=== PATIENT | female | born 1950 | race Caucasian/White ===

== ENCOUNTER 2023-07-24 13:02 | Emergency (ER) | payer MEDICARE, OTHER, SELFPAY ==
[2023-07-24 13:07] VITALS: BP 154/91
[2023-07-24] MEDS: ZOFRAN ODT (ORALLY DISINTEGRATING) 4 MG PO (13:20)
[2023-07-24 13:30] LABS: % Basophils 0.4 % (0-2); % Eosinophils 0.7 % (0-6); % Immature Granulocytes 0.3 % (0-0.5); % Lymphocytes 12.1 % (20.5-51.1); % Monocytes 8.4 % (1.7-9.3); % Neutrophils 78.1 % (42.2-75.2); Absolute Eosinophils 0.1 10^3/uL (0-0.7); Absolute Lymphocytes 1.3 10^3/uL (1.2-3.4); Absolute Monocytes 0.9 10^3/uL (0.1-0.6); Absolute Neutrophils 8.2 10^3/uL (1.4-6.5); Hemoglobin 14.3 g/dL (12.0-16.0); Mean Corp Hgb Conc. 34.9 g/dL (33.0-37.0); Mean Corpuscular Hgb 31.6 pg (27.0-31.0); Mean Corpuscular Volume 90.5 fL (81.0-99.0); Nucleated Red Blood Cells % 0 %; Platelet Count 291 10^3/uL (130-400); Red Blood Cell Count 4.53 10^6/uL (4.20-5.40); Red Cell Dist. Width 12.9 % (11.5-14.5); White Blood Cell Count 10.5 10^3/uL (4.8-10.8)
[2023-07-24 13:34] LABS: Urine Albumin Trace (Neg - Trace); Urine Bilirubin Negative (Negative); Urine Character Slightly Cloudy (Clear); Urine Color Yellow; Urine Glucose Negative (Negative); Urine Ketone Negative (Negative); Urine Leukocyte 2+ (Negative); Urine Nitrite Positive (Negative); Urine Occult Blood 1+ (Negative); Urine Specific Gravity 1.015 (<1.030); Urine Urobilinogen Negative (Neg - 1+)
[2023-07-24 13:41] LABS: Urine Red Blood Cell 0-2 /HPF (0-2)
[2023-07-24 13:42] LABS: Urine Bacteria Many (Negative)
[2023-07-24 13:53] LABS: ALT (SGPT) 33 U/L (0-35); AST (SGOT) 26 U/L (14-36); Albumin 4.6 g/dl (3.5-5.0); Alkaline Phosphatase 116 U/L (38-126); Blood Urea Nitrogen 17 mg/dl (7-17); Calcium 9.8 mg/dl (8.4-10.2); Carbon Dioxide 24 mmol/L (22-30); Chloride 101 mmol/L (98-107); Glucose 130 mg/dl (70-99); Lipase 79 U/L (23-300); Potassium 4.6 mmol/L (3.5-5.1); Sodium 134 mmol/L (135-145); Total Bilirubin 1.1 mg/dl (0.2-1.3); Total Protein 7.6 g/dl (6.3-8.2); eGFR > 60.00
[2023-07-24] MEDS: TYLENOL 650 MG PO (15:29)
[2023-07-24] MEDS: NSS 1000 IV (15:29)
[2023-07-24 16:26] LABS: Lactic Acid 1.1 mmol/L (0.7-2.0)
--- NOTE | 2023-07-24 17:23 | ED.GENMED ---
Addendum entered and electronically signed by Marianne Francis PA-C 07/28/23 07:12:
urine culture e coli sensitive to cefazolin, on cefdinir, no treatment change
Original Note:
History of Present Illness
General
Chief Complaint: Abdominal Symptoms
Source: patient
Exam Limitations: none
Time Seen by Provider: 07/24/23 14:19
Nursing documentation reviewed up to this point in time: agreed with
Travel History
Have you had any contact with someone who has COVID-19?: No
Do you have any symptoms of coronavirus? Fever > 100 degrees, chills, cough, shortness of breath, sore throat, loss of taste or smell, muscle aches, or headache?: No
History of Present Illness
History of Present Illness:
73-year-old female with history of hypertension hyperlipidemia presents for nausea and vomiting today. Patient says the symptoms actually started with diarrhea yesterday early in 2 AM timeframe. She says she had eaten out at a restaurant and
thought maybe she just ate some bad food. She had several episodes of diarrhea before taking an Imodium and then the diarrhea resolved. Then she did not really have an appetite yesterday and then today started having nausea and vomiting. She
thinks she vomited at least 20 times at home. Patient was feeling very cold and having the shaking chills and bodyaches. She never had any focal abdominal discomfort never had any urinary symptoms. 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
prolapse status post surgeries. She was followed by a urologist as well. She does not chronically get UTIs. Of note the patient did take Advil 400 mg at 1145 today and Tylenol 500 mg for feeling feverish.
she has never had a kidney stone
denies back pain, abdominal pain
had strep A positive 3 weeks ago and was treated with amox but has completed the abx > 10 days ago
Past History
Past History
ED Past Medical History: HTN and Hypercholesterolemia
ED Past Surgical History: Urological
Social History
Tobacco: Non-smoker
Alcohol: None
Drug: None
Personal:
Living: with family
Review of Systems
Review of Systems
Allergies reviewed?: Yes
All Other Systems: Not applicable
Phy Exam
Physical Exam
Physical Exam:
GENERAL: Alert , in no apparent distress
EYE: pupils equal and reactive
NECK: Supple
ENT: o/p clr, dry mouth.
CARDIAC: Regular rate and rhythm, no edema
LUNGS: Clear breath sounds bilaterally, no acute respiratory distress, no wheezes/rales/rhonchi
ABDOMEN: Soft, without focal tenderness, no r/g, no cvat, normal bowel sounds
no suprapubic pain
no cva tenderness;
NEUROLOGICAL: Alert and oriented, no focal neuro deficits
SKIN: Warm and dry, skin intact.
MUSCULOSKELETAL: No edema, well perfused. neg scott's sign
PSYCH: Normal and appropriate interaction.
Course
Orders/Labs/Results
Orders:
Orders
07/24/23 13:19
Ondansetron Orally Disint [Zofran Odt (Orally Disintegrating)] 4 mg .ROUTE .STK-MED ONE
Ondansetron Orally Disint [Zofran Odt (Orally Disintegrating)] 4 mg PO NOW STA
07/24/23 13:22
Complete Blood Count/With Diff Urgent
Comprehensive Metabolic Panel Urgent
Lipase Urgent
Urinalysis Reflex To Culture Urgent
Date Specimen was Collected: 07/24/23
Time Specimen was Collected: 13:15
Urine Microscopic Reflex Cult Urgent
Urine Culture Urgent
FAROOQ Source: U
Specimen Description:
Date Specimen was Collected: 07/24/23
Time Specimen was Collected: 13:15
07/24/23 15:19
0.9% Sodium Chloride 1000 ml [Nss] 1,000 ml IV BOLUS
07/24/23 15:20
CT Abd/Pel (IV only)-DH only Urgent
Comment:
Reason For Exam: n/v/d, fever, UTI
Acetaminophen [Tylenol] 650 mg PO NOW STA
07/24/23 15:48
Lactic Acid Urgent
Blood Culture Q30M
FAROOQ Source: Blood/Venous
Specimen Description:
07/24/23 15:49
Blood Culture Q30M
FAROOQ Source: Blood/Venous
Specimen Description:
07/24/23 17:22
CefTRIAXone [Rocephin] 1,000 mg IV NOW STA
Abnormal Lab Results
07/24/23
13:22
MCH 31.6 H pg
(27.0-31.0)
Absolute Neuts (auto) 8.2 H 10^3/uL
(1.4-6.5)
Absolute Monos (auto) 0.9 H 10^3/uL
(0.1-0.6)
Neutrophils % 78.1 H %
(42.2-75.2)
Lymphocytes % 12.1 L %
(20.5-51.1)
Sodium 134 L mmol/L
(135-145)
Glucose 130 H mg/dl
(70-99)
Ur Occult Blood Reflex 1+ A
(Negative)
Urine Nitrite (Reflex) Positive A
(Negative)
Leukocyte Esterase Rfl 2+ A
(Negative)
Urine WBC (Reflex) 11-15 A /HPF
(0-5)
Urine Bacteria (Reflex) Many A
(Negative)
07/24/23 13:22
07/24/23 13:22
Vital Signs
Initial and Last Documented VS:
Initial Vital Signs
Temp Pulse Resp BP Pulse Ox
100.9 F H 118 20 154/91 99
07/24/23 13:07 07/24/23 13:07 07/24/23 13:07 07/24/23 13:07 07/24/23 13:07
Last Documented Vital Signs
Temp Pulse Resp BP Pulse Ox
99.9 F 92 18 121/59 97
07/24/23 17:33 07/24/23 17:33 07/24/23 17:33 07/24/23 17:33 07/24/23 17:33
MDM/Problems Addressed
Differential Diagnosis Includes:
uti, pyelo, infectious diarrhea, colitis, gastroenteritis
MDM/Problems Addressed:
73 y/o F with htn, hld
here with n/v/d
started yesterday with diarrhea, which was a few episodes, pianless, and resovled after 1 imodium but then pt got n/v x 20 today and aches, chills, and fever
she has not had urinary symptoms
was recently on abx a few weeks ago for strep (amox)
she has not had any back pain, abdominal pain, bloody diarrhea
on exam pt appeared dry mouth, tachy, febrile
she has nontende rabdomen
no cva tendneress
temp was 101
treated with tylenola nd fluids
labs show normal wbc, normal lactate
ct shows no obvious pathology
reassessed 07/24/2023 1734 PM
feels better
tolerated oral fluids
no longer febrile
well appearing, nontoxic
urine +
will treat with rocephin
pt toelrated po fluids here
d/c home
return precautions.
*Critical Care Note
Total Time (30-74mins, 75-104mins- exclusive of procedures): Not Applicable
ED Attending Note
-
Portions of this chart may have been created with voice recognition software.� Occasional wrong word or��sound alike� substitutions may have occurred due to the inherent limitations of voice recognition software.
Discharge Plan
Departure
Patient Disposition: Home (Routine Discharge)
Date of Disposition: 07/24/23
Time of Disposition: 17:37
Patient with high blood pressure during this ER visit?: No
Condition: Fair
Covid-19: Not Applicable
Discharge Problem:
UTI (urinary tract infection), Nausea vomiting and diarrhea
Instructions: Urinary Tract Infection, Adult (DC), Nausea and Vomiting, Adult (DC)
Prescriptions:
New
ondansetron 4 mg tablet,disintegrating
4 mg PO Q8H PRN (Reason: nausea and vomiting) 2 Days Qty: 5 0RF
cefdinir 300 mg capsule
300 mg PO BID Qty: 20 0RF
Referrals:
Jcarlos Wood PA-C [Family Provider] - Follow up in 2-3 days
Activity Restrictions/Additional Instructions:
Were not sure what is causing your nausea vomiting and diarrhea but it could be viral. You do however have a urinary tract infection. We are giving you antibiotics, you can start taking your cefdinir tomorrow twice a day for 10 days. We sent a
culture just in case we need to change her antibiotic. You can use a probiotic while you are on this antibiotic to avoid diarrhea. If you start getting more diarrhea you may have to have an evaluation with a stool study. Return for high fevers,
back pain, repeated vomiting, severe diarrhea, or any concerns.
If you get nauseous you can use Zofran 4 mg every 8 hours as needed
Interventions
Interventions:
*Risk Screen - Suicide Last Done: 07/24/23 17:56
*General Assessment Last Done: 07/24/23 17:56
*Neglect/Abuse Screening Last Done: 07/24/23 17:56
ED- Fall Risk Assessment Last Done: 07/24/23 17:56
*ED COVID-19 Vaccine History Last Done: 07/24/23 17:56
TW-Sftctd-Oyklltmhek Assessment Last Done: 07/24/23 17:56
Discharge Date and Time
Print Language: FAROESE
[2023-07-24 17:33] VITALS: BP 121/59
[2023-07-24] MEDS: ROCEPHIN 1000 MG IV (17:36)
== END 2023-07-24 18:00 | disposition home or self-care (01) ==
LOC: EMR 13:02
PROVIDERS: Emergency Medicine; Physician Assistant; EMERGENCY PHYSICIAN Emergency Medicine; FAMILY PHYSICIAN Physician Assistant Medical
DX: N39.0 Urinary tract infection, site not specified (principal); R11.2 Nausea with vomiting, unspecified; R19.7 Diarrhea, unspecified; R00.0 Tachycardia, unspecified; R68.2 Dry mouth, unspecified; I10 Essential (primary) hypertension; E78.00 Pure hypercholesterolemia, unspecified
CPT/HCPCS: 99285; 96361; 96374; 74177; 80053; 81003; 81015; 83605; 83690; 85025; 87040; 87086; 87088; 87186; Q9967

== ENCOUNTER 2023-11-25 16:34 | Emergency (ER) | payer MEDICARE, OTHER, SELFPAY ==
[2023-11-25 16:37] VITALS: BP 134/86
[2023-11-25] MEDS: TYLENOL 1000 MG PO (16:45)
[2023-11-25] MEDS: ZOFRAN ODT (ORALLY DISINTEGRATING) 4 MG PO (16:45)
[2023-11-25 16:55] LABS: % Basophils 0.2 % (0-2); % Eosinophils 0.1 % (0-6); % Immature Granulocytes 0.5 % (0-0.5); % Lymphocytes 5.3 % (20.5-51.1); % Monocytes 8.2 % (1.7-9.3); % Neutrophils 85.7 % (42.2-75.2); Absolute Immature Granulocytes 0.1 10^3/uL (0-0.05); Absolute Lymphocytes 0.7 10^3/uL (1.2-3.4); Absolute Monocytes 1.1 10^3/uL (0.1-0.6); Absolute Neutrophils 11.2 10^3/uL (1.4-6.5); Hematocrit 40.5 % (37.0-47.0); Hemoglobin 14.4 g/dL (12.0-16.0); Mean Corp Hgb Conc. 35.6 g/dL (33.0-37.0); Mean Corpuscular Hgb 30.7 pg (27.0-31.0); Mean Corpuscular Volume 86.4 fL (81.0-99.0); Mean Platelet Volume 9.4 fL (7.4-10.4); Nucleated Red Blood Cells % 0 %; Platelet Count 229 10^3/uL (130-400); Red Blood Cell Count 4.69 10^6/uL (4.20-5.40); Red Cell Dist. Width 13.2 % (11.5-14.5); White Blood Cell Count 13.1 10^3/uL (4.8-10.8)
[2023-11-25 16:59] LABS: Urine Albumin Negative (Neg - Trace); Urine Bilirubin Negative (Negative); Urine Character Clear (Clear); Urine Color Yellow; Urine Glucose Negative (Negative); Urine Ketone Negative (Negative); Urine Leukocyte 2+ (Negative); Urine Nitrite Positive (Negative); Urine Occult Blood 1+ (Negative); Urine Specific Gravity 1.005 (<1.030); Urine Urobilinogen Negative (Neg - 1+)
[2023-11-25 17:08] LABS: Lactic Acid 1.3 mmol/L (0.7-2.0)
[2023-11-25 17:09] LABS: ALT (SGPT) 32 U/L (0-35); AST (SGOT) 31 U/L (14-36); Albumin 4.4 g/dl (3.5-5.0); Alkaline Phosphatase 114 U/L (38-126); Blood Urea Nitrogen 14 mg/dl (7-17); Calcium 9.7 mg/dl (8.4-10.2); Carbon Dioxide 24 mmol/L (22-30); Chloride 100 mmol/L (98-107); Glucose 116 mg/dl (70-99); Lipase 41 U/L (23-300); Potassium 4.8 mmol/L (3.5-5.1); Sodium 136 mmol/L (135-145); Total Bilirubin 1.1 mg/dl (0.2-1.3); Total Protein 6.9 g/dl (6.3-8.2); eGFR > 60.00
[2023-11-25 17:10] LABS: Urine Bacteria Many (Negative); Urine Squamous Cell 26-30 /LPF (Few); Urine White Cell 26-30 /HPF (0-5)
[2023-11-25 18:32] VITALS: BP 107/58
[2023-11-25 19:01] VITALS: BP 116/70
--- NOTE | 2023-11-25 19:05 | ED.GENMED ---
History of Present Illness
<ANAM Rucker - Last Filed: 11/25/23 19:28>
General
Chief Complaint: Urinary Symptoms
Source: patient
Exam Limitations: none
Time Seen by Provider: 11/25/23 18:24
History of Present Illness
History of Present Illness:
This is a 73 year old female that comes in with c/o urinary symptoms. States that she was here 4 months ago with the same thing. States that she got up yesterday and just didn't feel good. States that she started with a low grade fever of 100 and
she took Ibuprofen. States that she started with urinary burning and frequency. States that she slept but not well. States that she awoke and again did not feel well. States that in the afternoon she had a fever of 102 and shaking chills. States
that she also vomited. Denies any chest pain, SOB< abd pain, diarrhea, headache, dizziness.
Past History
<ANAM Rucker - Last Filed: 11/25/23 19:28>
Past History
ED Past Medical History: HTN, Hypercholesterolemia and Other (Rectol prolapse, UTI, )
ED Past Surgical History: Bowel resection, Gynecological (Hysterectomy), Orthopedic (Left hand surgery) and Urological (Bladder sling X 2)
Social History
Tobacco: Former smoker
Alcohol: None
Drug: None
Personal:
Living: with family
Review of Systems
<ANAM Rucker - Last Filed: 11/25/23 19:28>
Review of Systems
All Other Systems: ROS reviewed and negative except as documented in HPI and ROS
Constitutional: Reports fever and chills
EENT: Reports no symptoms
Respiratory: Reports no symptoms; Denies cough or trouble breathing
Cardiac: Reports no symptoms; Denies chest pain
ABD/GI: Reports nausea and vomiting; Denies abdominal pain or diarrhea
: Reports dysuria, frequency and urgency
Musculoskeletal: Reports no symptoms
Skin: Reports no symptoms
Neurological: Reports no symptoms; Denies dizzy or headache
Psychiatric: Reports no symptoms
Phy Exam
<ANAM Rucker - Last Filed: 11/25/23 19:28>
General Physical Exam
General Presentation: well appearing and no apparent distress
General age: appears stated age
General Skin: warm and dry
General Habitus: elderly
General Mental: alert
General Hydration: dry mucous membranes
ENT Exam
ENT Exam: TM's normal, pharynx normal and neck supple
Eye Exam
Eye Exam: EOMI
Cardiovascular Exam
Cardiovascular Exam: regular rate/rhythm, no edema, no murmur and normal peripheral pulses
Pulmonary Exam
Pulmonary Exam: lungs clear, no respiratory distress, no rales, chest non tender, no crackles, no rhonchi, no wheezing and no cough
Gastrointestinal Exam
Gastrointestinal Exam: normal bowel sounds, non tender, soft, no organomegaly, no pulsatile mass and non distended
Musculoskeletal Exam
Musculoskeletal Exam: full ROM and no edema
Skin Exam
Skin Exam: normal color, warm/dry, no rash and no petechia
Psychiatric Exam
Psychiatric Exam: normal mood/affect
Course
<ANAM Rucker - Last Filed: 11/25/23 19:28>
Orders/Labs/Results
Orders:
Orders
11/25/23 16:43
Acetaminophen [Tylenol] 1,000 mg .ROUTE .STK-MED ONE
Ondansetron Orally Disint [Zofran Odt (Orally Disintegrating)] 4 mg .ROUTE .STK-MED ONE
11/25/23 16:44
Acetaminophen [Tylenol] 1,000 mg PO NOW STA
Ondansetron Orally Disint [Zofran Odt (Orally Disintegrating)] 4 mg PO NOW STA
11/25/23 16:45
CBC/With Diff [Complete Blood Count/With Diff] Urgent
CMP [Comprehensive Metabolic Panel] Urgent
Lactate Level [Lactic Acid] Urgent
Lipase Urgent
11/25/23 16:48
Urinalysis Reflex To Culture Urgent
Date Specimen was Collected: 11/25/23
Time Specimen was Collected: 16:40
Urine Microscopic Reflex Cult Urgent
Urine Culture Urgent
FAROOQ Source: U
Specimen Description:
Date Specimen was Collected: 11/25/23
Time Specimen was Collected: 16:40
11/25/23 19:04
CefTRIAXone [Rocephin] 1,000 mg IV NOW STA
Abnormal Lab Results
11/25/23 11/25/23
16:45 16:48
WBC 13.1 H 10^3/uL
(4.8-10.8)
Abs Immat Gran (auto) 0.1 H 10^3/uL
(0-0.05)
Absolute Neuts (auto) 11.2 H 10^3/uL
(1.4-6.5)
Absolute Lymphs (auto) 0.7 L 10^3/uL
(1.2-3.4)
Absolute Monos (auto) 1.1 H 10^3/uL
(0.1-0.6)
Neutrophils % 85.7 H %
(42.2-75.2)
Lymphocytes % 5.3 L %
(20.5-51.1)
Glucose 116 H mg/dl
(70-99)
Ur Occult Blood Reflex 1+ A
(Negative)
Urine Nitrite (Reflex) Positive A
(Negative)
Leukocyte Esterase Rfl 2+ A
(Negative)
Urine RBC 7-10 A /HPF
(0-2)
Urine WBC (Reflex) 26-30 A /HPF
(0-5)
Urine Bacteria (Reflex) Many A
(Negative)
11/25/23 16:45
11/25/23 16:45
Leukocytosis, Glucose nonfasting. Urine positive for infection. Lipase normal at 41, Lactic acid 1.3
Vital Signs
Initial and Last Documented VS:
Initial Vital Signs
Temp Pulse Resp BP Pulse Ox
100.3 F 100 18 134/86 98
11/25/23 16:37 11/25/23 16:37 11/25/23 16:37 11/25/23 16:37 11/25/23 16:37
Last Documented Vital Signs
Temp Pulse Resp BP Pulse Ox
99.6 F 100 18 116/70 96
11/25/23 18:35 11/25/23 16:37 11/25/23 16:37 11/25/23 19:01 11/25/23 19:00
Shantellt;Dave De La Cruz PA-C - Last Filed: 11/27/23 07:01>
Orders/Labs/Results
Orders:
Orders
11/25/23 16:43
Acetaminophen [Tylenol] 1,000 mg .ROUTE .STK-MED ONE
Ondansetron Orally Disint [Zofran Odt (Orally Disintegrating)] 4 mg .ROUTE .STK-MED ONE
11/25/23 16:44
Acetaminophen [Tylenol] 1,000 mg PO NOW STA
Ondansetron Orally Disint [Zofran Odt (Orally Disintegrating)] 4 mg PO NOW STA
11/25/23 16:45
CBC/With Diff [Complete Blood Count/With Diff] Urgent
CMP [Comprehensive Metabolic Panel] Urgent
Lactate Level [Lactic Acid] Urgent
Lipase Urgent
11/25/23 16:48
Urinalysis Reflex To Culture Urgent
Date Specimen was Collected: 11/25/23
Time Specimen was Collected: 16:40
Urine Microscopic Reflex Cult Urgent
Urine Culture Urgent
FAROOQ Source: U
Specimen Description:
Date Specimen was Collected: 11/25/23
Time Specimen was Collected: 16:40
11/25/23 19:04
CefTRIAXone [Rocephin] 1,000 mg IV NOW STA
Abnormal Lab Results
11/25/23 11/25/23
16:45 16:48
WBC 13.1 H 10^3/uL
(4.8-10.8)
Abs Immat Gran (auto) 0.1 H 10^3/uL
(0-0.05)
Absolute Neuts (auto) 11.2 H 10^3/uL
(1.4-6.5)
Absolute Lymphs (auto) 0.7 L 10^3/uL
(1.2-3.4)
Absolute Monos (auto) 1.1 H 10^3/uL
(0.1-0.6)
Neutrophils % 85.7 H %
(42.2-75.2)
Lymphocytes % 5.3 L %
(20.5-51.1)
Glucose 116 H mg/dl
(70-99)
Ur Occult Blood Reflex 1+ A
(Negative)
Urine Nitrite (Reflex) Positive A
(Negative)
Leukocyte Esterase Rfl 2+ A
(Negative)
Urine RBC 7-10 A /HPF
(0-2)
Urine WBC (Reflex) 26-30 A /HPF
(0-5)
Urine Bacteria (Reflex) Many A
(Negative)
11/25/23 16:45
11/25/23 16:45
Vital Signs
Initial and Last Documented VS:
Initial Vital Signs
Temp Pulse Resp BP Pulse Ox
100.3 F 100 18 134/86 98
11/25/23 16:37 11/25/23 16:37 11/25/23 16:37 11/25/23 16:37 11/25/23 16:37
Last Documented Vital Signs
Temp Pulse Resp BP Pulse Ox
99.6 F 100 18 116/70 96
11/25/23 18:35 11/25/23 16:37 11/25/23 16:37 11/25/23 19:01 11/25/23 19:00
<ANAM Rucker - Last Filed: 11/25/23 19:28>
MDM/Problems Addressed
Differential Diagnosis Includes:
UTI
MDM/Problems Addressed:
This is a 73 year old female that comes in with c/o UTI.
Will check urine and labs.
Explained to patient that her WBC are elevated and that she has a UTI. Will give patient IV Rocephen and place on antibiotics for home. Patient is nontoxic looking and states that she is good enough to go home. Patient to follow up with her
Urologist. Return with any concerns.
Chronic conditions affecting care:
UTI
Acute Exacerbation and/or Progression of Chronic Illness:
UTi
<ANAM Rucker - Last Filed: 11/25/23 19:28>
*Pulse Oximetry
Patient hypoxic: no
*EKG
Interpreted by ED Provider?: NA
Rate: EKG- N/A
*Hydraulic Barker Operator Interpretation
Rate: Hydraulic Barker Operator- N/A
*Critical Care Note
Total Time (30-74mins, 75-104mins- exclusive of procedures): Not Applicable
<Dave De La Cruz PA-C - Last Filed: 11/27/23 07:01>
Update Note
Update Note:
November 27, 2023 7 AM: Urine culture shows greater than 100,000 colony-forming units of gram-negative bacilli. Patient on Omnicef. Sensitivities pending
ED Attending Note
<ANAM Rucker - Last Filed: 11/25/23 19:28>
-
Portions of this chart may have been created with voice recognition software.� Occasional wrong word or��sound alike� substitutions may have occurred due to the inherent limitations of voice recognition software.
Discharge Plan
Departure
Patient Disposition: Home (Routine Discharge)
Date of Disposition: 11/25/23
Time of Disposition: 19:22
Patient with high blood pressure during this ER visit?: No
Condition: Good
Covid-19: Not Applicable
Discharge Problem:
Urinary tract infection
Instructions: Urinary Tract Infection, Adult (DC)
Prescriptions:
New
cefdinir 300 mg capsule
300 mg PO BID Qty: 14 0RF
No Action
ondansetron 4 mg tablet,disintegrating
4 mg PO Q8H PRN (Reason: nausea and vomiting) 2 Days Qty: 5 0RF
cefdinir 300 mg capsule
300 mg PO BID Qty: 20 0RF
Referrals:
NONE,* [Active] -
Activity Restrictions/Additional Instructions:
As discussed, you have a urinary tract infection. Your blood work shows that your White blood cell count is elevated. Please increase your water intake to 8-8oz glasses daily. You have been given IV antibiotics here and a prescription has been sent
to your Pharmacy. Please take this as directed starting tomorrow morning and complete the 7 days total. Follow up with your Urologist. Tylenol 1000mg every 6 hours for fever. IF YOU HAVE ANY OTHER CONCERNS PLEASE RETURN TO THE EMERGENCY ROOM .
Interventions
Interventions:
*Risk Screen - Suicide Last Done: 11/25/23 16:37
*General Assessment Last Done: 11/25/23 18:35
*Neglect/Abuse Screening Last Done: 11/25/23 18:35
*Nursing Disposition Last Done: 11/25/23 20:11
ED-Female Genitourinary Assessment Last Done: 11/25/23 18:35
Discharge Date and Time
Discharge Date/Time: 11/25/23 20:15
Print Language: ROMANIAN
[2023-11-25] MEDS: ROCEPHIN 1000 MG IV (19:42)
== END 2023-11-25 20:15 | disposition home or self-care (01) ==
LOC: EMR 16:34
PROVIDERS: Emergency Medicine; EMERGENCY PHYSICIAN Student in an Organized Health Care Education/Training Program; FAMILY PHYSICIAN Physician Assistant Medical
DX: N39.0 Urinary tract infection, site not specified (principal); R11.2 Nausea with vomiting, unspecified; I10 Essential (primary) hypertension; E78.00 Pure hypercholesterolemia, unspecified; Z87.440 Personal history of urinary (tract) infections; Z87.891 Personal history of nicotine dependence; Z98.0 Intestinal bypass and anastomosis status
CPT/HCPCS: 99284; 96374; 80053; 81003; 81015; 83605; 83690; 85025; 87077; 87086; 87186

== ENCOUNTER 2024-07-14 06:14 | Day surgery (SDC) | payer MEDICARE, OTHER, SELFPAY | END 2024-07-14 12:45 | disposition home or self-care (01) | LOC: GI 06:14 | PROVIDERS: ATTENDING PHYSICIAN Specialist | DX: Z12.11 Encounter for screening for malignant neoplasm of colon (principal); D12.0 Benign neoplasm of cecum; Z80.0 Family history of malignant neoplasm of digestive organs | CPT/HCPCS: 45385; 88305 ==